=== PATIENT | female | born 1955 | race Native Hawaiian/Other Pacific Islander ===

== ENCOUNTER 2016-06-27 20:33 | Observation (INO) | payer OTHER ==
[2016-06-27] VITALS (9 sets, daily range): BP systolic 84–118; BP diastolic 49–68; TEMP 98.3
[~2016-06-27] VITALS: Ht 165.1 cm; Wt 79.4 kg
[~2016-06-27 20:33] MED LIST: ALPR0.5T24 PO; BUSP5TAB2 PO; GABA300C2 PO; HYDR10TA47 PO; LEXAPRO20 MG OR; LOSA50TA PO; METOPROLOL25 M1 OR; PROVENTIL IN; REQUIP0.25 MG OR; TOPAMAX50 MG OR; TRAMADOL HCL100 M1 OR; WARFARIN6 MG PO; ZIPR20CA PO
[2016-06-27 22:24] LABS: PLATELET COUNT 311 K/uL (152-353)
[2016-06-27 22:33] LABS: POTASSIUM 2.6 mmol/L (3.6-5.2)
[2016-06-27 23:04] LABS: PARTIAL THROMBOPLASTIN TIME 48.5 SECONDS (24.5-33.6)
[2016-06-27] MEDS ORDERED: BENTYL10 MG PO (23:42)
[2016-06-27] MEDS ORDERED: JANTOVEN6 MG OR (23:42)
[2016-06-27] MEDS ORDERED: TOPIRAMATE50 MG OR (23:43)
[2016-06-27] MEDS ORDERED: ESCITALOPRAM20 MG PO (23:43)
[2016-06-27] MEDS ORDERED: GABA300C2 PO (23:44)
[2016-06-27] MEDS ORDERED: ROPINIROLE1 MG OR (23:44)
[2016-06-27] MEDS ORDERED: METO50TA27 PO (23:45)
[2016-06-27] MEDS ORDERED: OMEPRAZOLE40 MG OR (23:45)
[2016-06-27] MEDS ORDERED: OLOP0.1S OPTH (23:46)
[2016-06-27] MEDS ORDERED: ZIPRASIDONE HCL20 MG OR (23:47)
[2016-06-28] VITALS (23 sets, daily range): BP systolic 86–144; BP diastolic 50–100; TEMP 96.5–97.9
--- NOTE | 2016-06-28 00:15 | NUR ---
PATIENT REPORT CALLED FROM THE ED BY YARELY LOPEZ RN.
--- NOTE | 2016-06-28 00:30 | NUR ---
PATIENT ARRIVED IN UNIT BY WHEELCHAIR ASSISTED BY ER STAFF. PATIENT WAS ASSISTED INTO BED WITHOUT INCIDENT.
--- NOTE | 2016-06-28 00:35 | NUR ---
PATIENT WAS AWAKE AND ALERT, ORIENTED. PT HAS PORTACATH ACCESS WITH NS 500 ML BAG INFUSSING @ 999 THEN TKO AFTER COMPLETION. BED IN LOWER POSITION, TWO SIDERAILS UP. PATIENT WAS PLACED ON GENERAL UTILITY MACHINE OPERATOR, NIBP, AND PULSE OX. PATIENT STATES SHE STILL HAS PAIN TO HER CHEST AND WANTS TO GO TO SLEEP.
--- NOTE | 2016-06-28 02:00 | NUR ---
PATIENT IS SLEEPING AND AWAKE TO VOICE. NO ACUTE DISTRESS NOTED. WILL CONTINUE TO MONITOR.
--- NOTE | 2016-06-28 07:40 | NUR ---
AM ASSESSMENT DONE. PT SNORING. SLEEP APNEA NOTED. PT RECEIVED DILAUDID THIS AM.
[2016-06-28 07:53] LABS: PLATELET COUNT 358 K/uL (152-353)
[2016-06-28 08:04] LABS: POTASSIUM 3.4 mmol/L (3.6-5.2)
--- NOTE | 2016-06-28 08:04 | NUR ---
NITROPASTE HELD DUE TO LOW BP. WILL CONTINUE TO MONITOR.
--- NOTE | 2016-06-28 10:21 | NUR ---
PT SNORING. WILL CONTINUE TO MONITOR.
--- NOTE | 2016-06-28 10:45 | NUR ---
DR. TAMAYO HERE TO SEE PT.
--- NOTE | 2016-06-28 12:47 | NUR ---
PT WILL WAKE UP BRIEFLY AND THEN GO BACK TO SLEEP. WILL CONTINUE TO MONITOR.
--- NOTE | 2016-06-28 13:45 | NUR ---
PT AWAKE AND EATING LUNCH. PT UP TO BSC. PT VOIDED 900ML. SPECIMEN SENT TO THE LAB. PT C/O CP. PT HAS NITROPASTE ON. WILL MEDICATE.
--- NOTE | 2016-06-28 14:18 | NUR ---
PT RESTING QUIETLY WITH EYES CLOSED,
--- NOTE | 2016-06-28 16:19 | NUR ---
PT SNORING. WILL CONTINUE TO MONITOR.
--- NOTE | 2016-06-28 18:12 | NUR ---
PT SNORING. WILL CONTINUE TO MONITOR.
--- NOTE | 2016-06-28 18:45 | NUR ---
SHIFT REPORT RECEIVED. PT RESTING WITH EYES CLOSED AT PRESENT. NOT DISTURBED.
--- NOTE | 2016-06-28 20:30 | NUR ---
PT REQUESTING PAIN MEDICATION. PT ONLY OPENS EYES WHEN NURSE QUESTIONING HER. PT REMAINS DROWSY. PM MEDICATION GIVEN. WILL REASSESS PAIN MEDICATION NEED WHEN PT MORE ALERT. O2 SATURATION 99%. B/P 121/66, PULSE 76, RESP RATE 16.
--- NOTE | 2016-06-28 20:44 | NUR ---
PT HAS YELLOW DISCHARGE IN RIGHT EYE. EYES CLEANED WITH WARM WASH CLOTH. HCL OPHTHALMIC DROPS TO BOTH EYES ORDERED.
--- NOTE | 2016-06-28 23:10 | NUR ---
PT RESTING QUIETLY WITH EYES CLOSED.
[2016-06-29] VITALS (12 sets, daily range): BP systolic 92–156; BP diastolic 57–84; TEMP 98–98.9
--- NOTE | 2016-06-29 00:50 | NUR ---
PT AWAKE. REQUESTS BLANKET. WARM BLANKET GIVEN.
--- NOTE | 2016-06-29 05:42 | NUR ---
PT CONTINUES TO REST.
--- NOTE | 2016-06-29 06:00 | NUR ---
PT TO BEDSIDE COMMODE. VOIDED 900CC'S URINE.
--- NOTE | 2016-06-29 06:20 | NUR ---
AM LABS DRAWN TO LAB. DRAWN FROM JOSR CATH IN LEFT CHEST WALL.
--- NOTE | 2016-06-29 06:30 | NUR ---
OPEN AREA ON LEFT ARM UNDER BLOOD PRESSURE CUFF. PT STATES HAS BEEN THERE FOR 6 MONTHS AND WILL NOT HEAL. AREA WITH CLEAR DRAINAGE.
[2016-06-29 06:48] LABS: PLATELET COUNT 355 K/uL (152-353)
--- NOTE | 2016-06-29 08:12 | NUR ---
AM ASSESSEMENT DONE PT UP TO BSC BM. ASSIST WITH AM CARE STATES FEELING MUCH BETTER TODAY. LEFT DRESSING OFF LEFT ELBOW. PT STATES THAT SHE HAS A NON HEALING WOUND. NO DRAINAGE NO ODOR MEASURES 1.5X0.75 CM NO ODOR. STATES THAT " IT HAS LOOKED THIS WAY FOR THE LAST SIX MONTHS" NOT HEALING. MONITOR SHOWING SR HR 72
[2016-06-29 08:27] LABS: POTASSIUM 3.4 mmol/L (3.6-5.2)
[2016-06-29 08:29] LABS: PARTIAL THROMBOPLASTIN TIME 63.9 SECONDS (24.5-33.6)
--- NOTE | 2016-06-29 09:24 | NUR ---
PT C/O CHEST PAIN, CENTER OF CHEST RATE 10, REPLACE NITRO PASTE 1 INCH TO CHEST WALL. REPLACED O2 AT 2L NC. STABLE VITAL SIGNS RESP EVEN UNLABORED.
--- NOTE | 2016-06-29 11:27 | NUR ---
PT UP TO BSC TO VOID, HAS BEEN TALKING WITH FAMILY ON PHONE STATES "I FEEL GREAT" NO COMPLAINTS OF PAIN. STATES " I START HURTING AFTER I EAT" WILL REPORT TO .
--- NOTE | 2016-06-29 12:30 | NUR ---
UP IN ROOM WANTS TO GO HOME NO COMPLAINTS ATE ALL LUNCH, ASKED PT IF HER CHEST HURT ANY AFTER EATING LUCH SHE STATED THAT IT HURT A LITTLE.
--- NOTE | 2016-06-29 14:00 | NUR ---
DR TAMAYO VISITED CHECKED PT RECIEVED LAST LAB RESULT. PT TO BE DISCHARGED WILL FOLLOW UP WITH PCP. CONTINUE TO HOLD COUMADIN UNTIL SHE FOLLOW UP WITH HER DOCTOR. REPORTED BRUISES AND SKIN WOUND TO LEFT ELBOW TO DR TAMAYO GAVE INSTRUCTIONS FOR HER TO FOLLOW UP WITH HER DOCTOR. PT DRESSED ALLOWED TO GET OUT OF ROOM AND AMBULATE IN [facility].
--- NOTE | 2016-06-29 15:15 | NUR ---
WAITING FOR DISCHARGE ORDERS. PT RECIEVED TODAY'S DOSE ROCEPHIN IV BEFORE D/C IV. HAS BEEN OUT OF ROOM IN [place] VISITING WITH FAMILY.
--- NOTE | 2016-06-29 16:15 | NUR ---
IV MEDS FINISHED EXPLAINED PROCEDURE TO PT. FLUSHED PORT-A-CATH WITH 5 ML 100 UNITS HEPARIN PER ML FLUSH. EASY TO FLUSH WITH GOOD BLOOD RETURN. REMOVED LINTON NEEDLE NO BLEEDING AT SITE CLEAN AND DRY NO SIGNS OF INFECTION. REVIEWED DISCHARGE ORDERS AND PT RECIEVED RX. PT VERBALIZED UNDERSTANDING.
--- NOTE | 2016-06-29 16:30 | NUR ---
PT DISCHARGED VIA WHEELCHAIR TO PRIVATE CAR TO GO HOME WITH HER DAUGHTER AND GRANDCHILDREN. NO COMPLAINTS VOICED.
== END 2016-06-29 16:30 | disposition home or self-care (01) ==
LOC: ED 20:33 → ICU 23:42 → MED/SURG 23:42 → ICU 23:42
PROVIDERS: Internal Medicine; ADMIT Specialist
DX: R07.89 Other chest pain (principal); I25.2 Old myocardial infarction; N39.0 Urinary tract infection, site not specified; K21.9 Gastro-esophageal reflux disease without esophagitis
CPT/HCPCS: 36591; 80053; 81000; 82550; 83735; 83880; 84484; 85027; 85379; 85610; 85730; 86318; 87088; 93005; 94760; 96361; 96374; 96375; 99220; 99284; G0378; J1170; J1642; J2405

== ENCOUNTER 2016-07-10 19:10 | Observation (INO) | payer OTHER ==
[~2016-07-10] VITALS: Ht 170.2 cm; Wt 75.3 kg
[~2016-07-10 19:10] MED LIST changes: +BENTYL10 MG PO; +ESCITALOPRAM20 MG PO; +JANTOVEN6 MG OR; +METO50TA27 PO; +OLOP0.1S OPTH; +OMEPRAZOLE40 MG OR; +ROPINIROLE1 MG OR; +TOPIRAMATE50 MG OR; +ZIPRASIDONE HCL20 MG OR
[2016-07-10 19:15] VITALS: BP 124/64; TEMP 98.2
[2016-07-10 19:59] LABS: PLATELET COUNT 311 K/uL (152-353)
[2016-07-10 20:09] LABS: POTASSIUM 2.8 mmol/L (3.6-5.2)
[2016-07-10 20:17] LABS: PARTIAL THROMBOPLASTIN TIME 27.3 SECONDS (24.5-33.6)
[2016-07-10 21:42] VITALS: BP 90/60; TEMP 98.1
[2016-07-11] VITALS: BP 115/70; TEMP 97.7
[2016-07-11 04:39] VITALS: BP 135/73; TEMP 97.8; Ht 170.2 cm; Wt 75.3 kg
[2016-07-11 08:00] VITALS: BP 134/83; TEMP 98
[2016-07-11 11:56] VITALS: BP 112/62; TEMP 97.7
[2016-07-11 16:00] VITALS: BP 151/88; TEMP 98.9
[2016-07-11 20:00] VITALS: BP 104/61; TEMP 98
[2016-07-12] VITALS: BP 99/55; TEMP 97.8
[2016-07-12 04:00] VITALS: BP 103/56; TEMP 98
[2016-07-12 05:39] LABS: PLATELET COUNT 317 K/uL (152-353)
[2016-07-12 05:52] LABS: POTASSIUM 3.2 mmol/L (3.6-5.2)
[2016-07-12 08:00] VITALS: BP 104/54; TEMP 98
[2016-07-12 12:00] VITALS: BP 100/62; TEMP 99
== END 2016-07-12 16:47 | disposition home or self-care (01) ==
LOC: ED 19:10 → MED/SURG 21:05
PROVIDERS: Emergency Medicine
DX: R07.89 Other chest pain (principal); K21.9 Gastro-esophageal reflux disease without esophagitis; K22.2 Esophageal obstruction; I10 Essential (primary) hypertension; Z86.73 Personal history of transient ischemic attack (TIA), and cerebral infarction without residual deficits; I25.2 Old myocardial infarction
CPT/HCPCS: 36415; 36591; 80053; 82550; 83735; 84484; 85027; 85610; 85730; 93005; 94760; 96372; 96374; 99220; 99283; G0378; J1642; J1650; J1885

== ENCOUNTER 2016-09-06 10:46 | Emergency (ER) | payer OTHER ==
[~2016-09-06] VITALS: Ht 170.2 cm; Wt 77.1 kg
[2016-09-06 12:05] LABS: PLATELET COUNT 314 K/uL (152-353)
[2016-09-06 12:09] LABS: POTASSIUM 2.7 mmol/L (3.6-5.2)
[2016-09-06] MEDS ORDERED: META800T35 (12:39)
[2016-09-06] MEDS ORDERED: JANTOVEN6 MG OR (12:40)
[2016-09-06] MEDS ORDERED: METOPROLOL25 M1 OR (12:41)
[2016-09-06] MEDS ORDERED: XANAX XR1 MG OR (12:42)
== END 2016-09-06 14:21 | disposition home or self-care (01) ==
LOC: ED 10:46
DX: N39.0 Urinary tract infection, site not specified (principal); R55 Syncope and collapse
CPT/HCPCS: 36415; 80053; 80307; 80320; 81000; 82550; 84484; 85027; 85610; 85730; 87077; 87086; 87088; 87186; 93005; 96374; 99284; G0479; J0696; J1642

== ENCOUNTER 2016-09-06 10:46 | Outpatient (CLI) | payer OTHER ==
[2016-09-06] MEDS ORDERED: META800T35 (12:39)
[2016-09-06] MEDS ORDERED: JANTOVEN6 MG OR (12:40)
[2016-09-06] MEDS ORDERED: METOPROLOL25 M1 OR (12:41)
[2016-09-06] MEDS ORDERED: XANAX XR1 MG OR (12:42)
== END 2016-09-06 10:47 | disposition short-term general hospital (02) ==
LOC: AMB 10:46
DX: R55 Syncope and collapse (principal)
CPT/HCPCS: A0425; A0427

== ENCOUNTER 2016-09-14 16:41 | Outpatient (CLI) | payer OTHER ==
[~2016-09-14 16:41] MED LIST changes: +META800T35; +XANAX XR1 MG OR
[2016-09-15] MEDS ORDERED: GABA300C2 PO (08:33)
[2016-09-15] MEDS ORDERED: ZIPRASIDONE HCL20 MG OR (08:36)
[2016-09-15] MEDS ORDERED: HYDR12.54 (08:37)
[2016-09-15] MEDS ORDERED: ROPINIROLE1 MG OR (08:38)
== END 2016-09-14 16:46 | disposition short-term general hospital (02) ==
LOC: AMB 16:41
DX: R07.89 Other chest pain (principal); R06.02 Shortness of breath; M79.602 Pain in left arm
CPT/HCPCS: A0425; A0427

== ENCOUNTER 2016-09-14 16:52 | Inpatient (IN) | payer OTHER ==
[~2016-09-14] VITALS: Ht 170.2 cm; Wt 75.7 kg
[2016-09-14 16:47] VITALS: BP 89/52; TEMP 98
[2016-09-14 17:27] LABS: PLATELET COUNT 263 K/uL (152-353)
[2016-09-14 18:14] LABS: POTASSIUM 1.5 mmol/L (3.6-5.2)
[2016-09-14 21:20] VITALS: BP 115/76
[2016-09-14 22:19] VITALS: BP 108/58
[2016-09-14 23:19] VITALS: BP 115/62
[2016-09-15] VITALS (16 sets, daily range): BP systolic 93–124; BP diastolic 54–84; TEMP 98.8; Ht 170.2 cm; Wt 75.7 kg
[2016-09-15] MEDS ORDERED: GABA300C2 PO (08:33)
[2016-09-15] MEDS ORDERED: ZIPRASIDONE HCL20 MG OR (08:36)
[2016-09-15] MEDS ORDERED: HYDR12.54 (08:37)
[2016-09-15] MEDS ORDERED: ROPINIROLE1 MG OR (08:38)
== END 2016-09-15 11:42 | disposition short-term general hospital (02) | DRG 313 ==
LOC: ED 16:52 → MED/SURG 21:50 → ICU 09-15 07:06
DX: R07.89 Other chest pain (principal); E87.6 Hypokalemia; N18.5 Chronic kidney disease, stage 5; E83.42 Hypomagnesemia; T45.515A Adverse effect of anticoagulants, initial encounter; E87.2 Acidosis; G93.41 Metabolic encephalopathy; F15.10 Other stimulant abuse, uncomplicated; I20.0 Unstable angina
CPT/HCPCS: 36600; 80048; 80051; 80053; 80307; 81000; 82550; 82553; 82805; 83735; 84100; 84484; 85027; 85610; 86318; 93005; 96361; 96366; 96372; 96374; 99285; G0479; J2405; J3430; J3475; J3480; J3490

== ENCOUNTER 2016-09-15 11:44 | Outpatient (CLI) | payer OTHER ==
[~2016-09-15 11:44] MED LIST changes: +HYDR12.54
== END 2016-09-15 12:57 | disposition short-term general hospital (02) ==
LOC: AMB 11:44
DX: R07.89 Other chest pain (principal); E87.6 Hypokalemia; N18.5 Chronic kidney disease, stage 5; E83.42 Hypomagnesemia; T45.515A Adverse effect of anticoagulants, initial encounter; E87.2 Acidosis; G93.41 Metabolic encephalopathy; F15.10 Other stimulant abuse, uncomplicated; I20.0 Unstable angina
CPT/HCPCS: A0425; A0427

== ENCOUNTER 2017-04-05 13:14 | Inpatient (IN) | payer OTHER ==
[~2017-04-05] VITALS: Ht 162.6 cm; Wt 76.3 kg
[2017-04-05] VITALS (9 sets, daily range): BP systolic 120–149; BP diastolic 69–94; TEMP 98.8–99.1; Ht 162.6 cm; Wt 76.3 kg
[2017-04-05 14:25] LABS: PLATELET COUNT 287 K/uL (152-353)
[2017-04-05 14:36] LABS: POTASSIUM 2.7 mmol/L (3.6-5.2)
[2017-04-06] VITALS (23 sets, daily range): BP systolic 108–160; BP diastolic 71–106; TEMP 97.6–98.8
--- NOTE | 2017-04-06 04:39 | NUR ---
PT HAS RESTED WITH NO COMPLAINTS. CM WITH SR. PT DOES SNORE AND BREATHES WITH MOUTH OPEN WHILE SLEEPING. PT IS COPD.
[2017-04-06 06:54] LABS: PLATELET COUNT 295 K/uL (152-353)
[2017-04-06 07:16] LABS: POTASSIUM 5.1 mmol/L (3.6-5.2)
--- NOTE | 2017-04-06 10:22 | NUR ---
DR GUTHRIE AT PATIENTS BED SIDE
--- NOTE | 2017-04-06 12:00 | NUR ---
PATIENTS DAUGHTER AT BEDSIDE
--- NOTE | 2017-04-06 14:13 | NUR ---
RESPIRATORY THERAPY AAT PATIENTS BEDSIDE'
[2017-04-06] MEDS ORDERED: PANTOPRAZOLE 40MG TA PO (15:10)
[2017-04-07] VITALS (13 sets, daily range): BP systolic 126–188; BP diastolic 72–115; TEMP 97.2–98.4
--- NOTE | 2017-04-07 10:55 | NUR ---
REPORT GIVEN TO LY DHILLON RN. PT WILL BE IN MED SURG ROOM 1111.
--- NOTE | 2017-04-07 11:00 | NUR ---
PT TRANSPORTED TO ROOM 1111 VIA WC. NAD NOTED. FLUIDS INFUSING TO LEFT CHEST WALL PORT. O2 INTACT VIA NC.
[2017-04-08] VITALS: BP 149/81; TEMP 97.8
[2017-04-08 04:00] VITALS: BP 169/84; TEMP 98
[2017-04-08 08:30] VITALS: BP 189/89; TEMP 98.3
--- NOTE | 2017-04-08 10:35 | NUR ---
BP 156/87 DR. GUTHRIE AWARE.
[2017-04-08 11:08] LABS: POTASSIUM 4.6 mmol/L (3.6-5.2)
[2017-04-08 11:17] LABS: PLATELET COUNT 303 K/uL (152-353)
--- NOTE | 2017-04-08 12:50 | NUR ---
D/C INSTRUCTIONS GIVEN. PT VERBALIZED UNDERSTANDING. PAC FLUSHED WITH NS AND HEPARIN. HUEBER NEEDLE D/C'D WITH TIP INTACT BAND AID PLACED.
--- NOTE | 2017-04-08 12:55 | NUR ---
PT AMB OUT IN STABLE COND.
== END 2017-04-08 12:55 | disposition home or self-care (01) | DRG 189 ==
LOC: ED 13:14 → MED/SURG 16:51 → ICU 16:51 → ED 16:51 → MED/SURG 16:51 → ED 17:25 → ICU 04-07 11:38 → MED/SURG 04-07 11:38
PROVIDERS: Emergency Medicine; ADMIT Internal Medicine
DX: J96.00 Acute respiratory failure, unspecified whether with hypoxia or hypercapnia (principal); J44.1 Chronic obstructive pulmonary disease with (acute) exacerbation; E87.6 Hypokalemia; I10 Essential (primary) hypertension; Z72.0 Tobacco use; I25.10 Atherosclerotic heart disease of native coronary artery without angina pectoris
CPT/HCPCS: 36415; 36591; 36600; 80048; 80053; 82805; 83735; 85027; 87040; 87804; 94640; 94664; 94760; 96365; 96375; 99284; G0436; J0696; J1642; J2930

== ENCOUNTER 2017-04-15 03:26 | Outpatient (CLI) | payer OTHER ==
[~2017-04-15 03:26] MED LIST changes: +PANTOPRAZOLE 40MG TA PO
[2017-04-15] MEDS ORDERED: PROMETHAZINE25 M1 RE (04:02)
[2017-04-15] MEDS ORDERED: ESCITALOPRAM10 MG PO (04:03)
[2017-04-15] MEDS ORDERED: BENTYL10 MG PO (04:04)
[2017-04-15] MEDS ORDERED: FLUTICASONE50 MCG (04:07)
[2017-04-15] MEDS ORDERED: BUDE1AER3 INH (04:08)
[2017-04-15] MEDS ORDERED: ANORO ELLIPTA 61 AER IN (04:09)
== END 2017-04-15 03:32 | disposition short-term general hospital (02) ==
LOC: AMB 03:26
DX: R06.02 Shortness of breath (principal); R41.82 Altered mental status, unspecified
CPT/HCPCS: A0425; A0427

== ENCOUNTER 2017-04-15 03:35 | Inpatient (IN) | payer OTHER ==
[~2017-04-15] VITALS: Ht 162.6 cm; Wt 76.8 kg
[2017-04-15] VITALS (33 sets, daily range): BP systolic 77–162; BP diastolic 47–95; TEMP 96.8–99.1; Ht 162.6 cm; Wt 76.8 kg
[2017-04-15] MEDS ORDERED: PROMETHAZINE25 M1 RE (04:02)
[2017-04-15] MEDS ORDERED: ESCITALOPRAM10 MG PO (04:03)
[2017-04-15] MEDS ORDERED: BENTYL10 MG PO (04:04)
[2017-04-15] MEDS ORDERED: FLUTICASONE50 MCG (04:07)
[2017-04-15] MEDS ORDERED: BUDE1AER3 INH (04:08)
[2017-04-15] MEDS ORDERED: ANORO ELLIPTA 61 AER IN (04:09)
--- NOTE | 2017-04-15 09:19 | NUR ---
PT TO ICU VIA STRETCHER FROM ER,PT WITH EYES CLOSED,AWAKENS IF STARTLED WHEN NAME IS CALLED, ANSWERS QUESTIONS APPROPRIATELY,FOLLOWS COMMANDS & MOVES SELF TO BED FROM STRETCHER. WHEN ASKED WHY SHE WAS HERE,PT STATES,' I GOT MIXED UP ON MY MEDS & TOOK TO MUCH,I CANT REMEMBER WHEN GABO TAKEN IT, MY DAUGHTERS GOING TO HAVE TO HELP ME'. O2 SAT 97% ON RM AIR.
--- NOTE | 2017-04-15 11:30 | NUR ---
DISCUSSED PT'S PUPIL SIZE WITH DR GARZA.CT - EXCEPT FOR OLD INFARCT PER DR GARZA.NO NEW ORDERS.
--- NOTE | 2017-04-15 14:36 | NUR ---
PT WITH DECREASED BP 82/46. PT HARDER TO AROUSE BUT OPENS EYES WHEN NAME CALLED LOUDLY. MEDICATED WITH NARCAN 0.8MG IVP,
--- NOTE | 2017-04-15 14:45 | NUR ---
BP 128/72 PT MORE ALERT.
--- NOTE | 2017-04-15 16:00 | NUR ---
PT TURNED SELF TO L SIDE,LESS SNORING RESP EFFORT.
--- NOTE | 2017-04-15 16:30 | NUR ---
PT RESTING WITH EYES CLOSED,AWAKENS MORE EASILY.
--- NOTE | 2017-04-15 18:21 | NUR ---
PT AWAKE,DAUGHTER CALLED TO CK ON PT.TALKING WITH PT,PT STATES' THE MORE I THINK ABOUTIT THE MORE SOMETHINGS NOT RIGHT ABOUT LAST NIGHT. I WENT TO MY NEIGHBORS & HE'S AN ADDICT,HE WANTED SOME OF MY MEDS. THE LAST THING I REMEMBER IS GOING THERE'.PT SITTING UP IN BED.PT QUESTIONED IF SHE HAD ANY PAIN MEDS ORDERED. NO C/O PAIN.
--- NOTE | 2017-04-15 19:54 | NUR ---
FAMILY AT BEDSIDE. CM WITH SR. PT ADMITTED WITH UNINTENTIONAL DRUG OVERDOSE. PT WITH COPD AND ALTERED MENTAL STATUS. PT IS COMMUNICATING WITH FAMILY MEMBERS.
--- NOTE | 2017-04-15 21:24 | NUR ---
PT COMPLAINED WITH BACK PAIN AND REQUESTED PAIN MED. INSTRUCTED PT THAT PAIN MEDS NOT ORDERED BECAUSE OF HER AMS. PT VOICED UNDERSTANDING.
--- NOTE | 2017-04-15 21:48 | NUR ---
PT RESTING QUIETLY WITH EYES CLOSED. PT WITH LOUD SNORING RESPIRATIONS.
[2017-04-16] VITALS (8 sets, daily range): BP systolic 103–160; BP diastolic 63–93; TEMP 98.2–99.5
--- NOTE | 2017-04-16 02:17 | NUR ---
PT CONTINUES TO REST WITH EYES CLOSED. LOUD SNORING RESP NOTED.
--- NOTE | 2017-04-16 02:27 | NUR ---
PT CONTINUES TO REST WITH SNORING RESPIRATIONS.
[2017-04-16 07:00] LABS: PLATELET COUNT 340 K/uL (152-353)
[2017-04-16 07:56] LABS: POTASSIUM 3.9 mmol/L (3.6-5.2)
--- NOTE | 2017-04-16 08:00 | NUR ---
PT RESTING IN LW.AWAKE,A& O DENIES PAIN OR DISTRESS,PLEASANT & TALKATIVE.
--- NOTE | 2017-04-16 09:30 | NUR ---
DR MAHESH FARNSWORTH & RUKHSANA GREEN LPN/SHALAIBNavya IN TO SEE PT.
--- NOTE | 2017-04-16 11:30 | NUR ---
PT PULLED OUT ACCESS TO LCW PORT TRYING TO REMOVE TELEMETRY LEADS. SITE SECURED.
--- NOTE | 2017-04-16 11:55 | NUR ---
LCW PORT ACCESSED PER STERILE TECHNIQUE. IV FLUIDS STARTED.
--- NOTE | 2017-04-16 12:28 | NUR ---
REPORT CALLED TO REGINALDO GUAMAN RN.
--- NOTE | 2017-04-16 12:50 | NUR ---
PT TRANSFERRED STABLE VIA W/C PER LARRY SHABAZZ TO RM 1107.PT'S DAUGHTER NOTIFIED OF TRANSFER.
--- NOTE | 2017-04-16 14:30 | NUR ---
1330 PT TRANSFERRED FROM ICU VIA WC AND TRANSERRED TO ROOM 1107. PT AWAKE AND ALERT NO ACUTE DISTRESS NOTED. WILL CON'T TO MONITOR
[2017-04-17] VITALS: BP 135/84; TEMP 98.4
[2017-04-17 03:48] VITALS: BP 143/67; TEMP 98.5
[2017-04-17 05:17] LABS: PLATELET COUNT 299 K/uL (152-353)
[2017-04-17 05:39] LABS: POTASSIUM 3.4 mmol/L (3.6-5.2)
[2017-04-17 07:54] VITALS: BP 156/82; TEMP 98.8
[2017-04-17 12:00] VITALS: BP 184/82; TEMP 98.7
[2017-04-17 16:00] VITALS: BP 151/77; TEMP 98.8
[2017-04-17 20:00] VITALS: BP 142/81; TEMP 98.7
[2017-04-18] VITALS: BP 145/84; TEMP 98.5
[2017-04-18 04:00] VITALS: BP 168/93; TEMP 98.4
[2017-04-18 06:42] LABS: PLATELET COUNT 314 K/uL (152-353)
[2017-04-18 07:18] LABS: POTASSIUM 3.7 mmol/L (3.6-5.2)
[2017-04-18 08:00] VITALS: BP 157/83; TEMP 98.8
[2017-04-18 12:00] VITALS: BP 160/99; TEMP 98.9
[2017-04-18] MEDS ORDERED: Z-PAK PO (12:25)
--- NOTE | 2017-04-18 14:40 | NUR ---
PAC FLUSHED WITH 10ML OF NS AND 5ML OF HEPARIN. HUEBER NEEDLE D/C'D WITH TIP INTACT BAND AID APPLIED. D/C INSTRUCTIONS GIVEN. HOME MEDS GIVEN TO PT.
--- NOTE | 2017-04-18 14:45 | NUR ---
PT D/C'D HOME IN STABLE COND. PT AMB OUT.
== END 2017-04-18 13:30 | disposition home or self-care (01) | DRG 191 ==
LOC: ED 03:35 → ICU 08:00 → MED/SURG 08:00 → ED 08:00 → MED/SURG 04-16 12:50
DX: J44.1 Chronic obstructive pulmonary disease with (acute) exacerbation (principal); J98.11 Atelectasis; T40.601A Poisoning by unspecified narcotics, accidental (unintentional), initial encounter; I10 Essential (primary) hypertension; D72.828 Other elevated white blood cell count
CPT/HCPCS: 36415; 36591; 36600; 80053; 80307; 81000; 82550; 82553; 82805; 83605; 83880; 84484; 85027; 85379; 87040; 94640; 94664; 94760; 96360; 96361; 96365; 96366; 96367; 96372; 96374; 96375; 96376; 99285; C1726; J0171; J0696; J1642; J1650; J2310; J2405; J2930

== ENCOUNTER 2017-07-21 21:48 | Emergency (ER) | payer OTHER ==
[~2017-07-21] VITALS: Ht 170.2 cm; Wt 72.6 kg
[~2017-07-21 21:48] MED LIST changes: +ANORO ELLIPTA 61 AER IN; +BUDE1AER3 INH; +ESCITALOPRAM10 MG PO; +FLUTICASONE50 MCG; +PROMETHAZINE25 M1 RE; +Z-PAK PO
[2017-07-21 21:58] VITALS: TEMP 98.1
[2017-07-21 22:43] VITALS: BP 133/77
== END 2017-07-21 22:44 | disposition home or self-care (01) ==
LOC: ED 21:48
DX: L98.8 Other specified disorders of the skin and subcutaneous tissue (principal)
CPT/HCPCS: 96372; 99282; J1885